=== PATIENT | male | born 1955 | race Hispanic/Latino ===

== ENCOUNTER 2024-08-25 06:22 | Day surgery (SDC) | payer OTHER ==
[2024-08-23 13:58] LABS: BASOPHILS # (AUTO) 0.03 K/uL (0.00-0.20); BASOPHILS % (AUTO) 0.3 % (0.0-5.0); EOSINOPHILS % (AUTO) 1.2 % (0.0-8.0); HEMATOCRIT 39.5 % (42-54); IMMATURE GRANULOCYTE ABSOLUTE 0.05 K/uL (0-1); LYMPHOCYTES # (AUTO) 1.7 K/uL (1.0-4.8); LYMPHOCYTES % (AUTO) 19.8 % (21.0-51.0); MEAN CORPUSCULAR HEMOGLOBIN 29.2 pg (27.0-33.0); MEAN CORPUSCULAR HGB CONC 32.9 g/dL (32.0-36.0); MEAN CORPUSCULAR VOLUME 88.8 fL (79-99); MONOCYTES # (AUTO) 0.7 K/uL (0.1-1.0); MONOCYTES % (AUTO) 7.5 % (3.0-13.0); NEUTROPHILS # (AUTO) 6.1 K/uL (1.8-7.7); NEUTROPHILS % (AUTO) 70.6 % (40.0-77.0); PLATELET COUNT (AUTO) 220 K/uL (130-400); RED BLOOD CELL COUNT(AUTO) 4.45 MIL/uL (4.50-6.20); RED CELL DISTRIBUTION WIDTH 13.5 % (11.0-15.5); WHITE BLOOD COUNT (AUTO) 8.7 K/uL (4.8-10.8)
[2024-08-23 13:59] VITALS: BP 154/65; PULSE 75; RESP 15; TEMP 98.1
[2024-08-23 14:11] LABS: CREATININE 1.5 mg/dL (0.5-1.3); POTASSIUM 4.7 mmol/L (3.5-5.1)
[2024-08-25] VITALS (11 sets, daily range): BP systolic 97–136; BP diastolic 44–75; PULSE 63–82; RESP 16–18; TEMP 97.1–97.6
[~2024-08-25] VITALS: Ht 168.9 cm; Wt 103.2 kg
[~2024-08-25 06:22] MED LIST: FINA5TAB41 PO; LISI20TA24 PO; SITA100T12 PO; TAMS-1 PO; glyburide PO; lipitor PO; omega 3 PO; omeprazole PO; vitamin d3 PO; vitamin e PO
[2024-08-25] MEDS ORDERED: cefTRIAXone 1G VIAL ONE (08:04)
[2024-08-25] MEDS ORDERED: GENTAmicin 80 MG/NS 100 ML PB 100 ML IV ONE (08:04)
[2024-08-25] MEDS ORDERED: MIDAZOLAM HCL 1 MG/ML 2ML VIAL ONE (08:45)
[2024-08-25] MEDS ORDERED: FENTanyl CITRate PF 50 MCG/1 ML 2ML VIAL ONE ×2 (08:46→09:11)
[2024-08-25] MEDS ORDERED: proPOFol 10 MG/ML 20ML VIAL IV ONE ×2 (08:46→09:10)
[2024-08-25] MEDS ORDERED: LIDOCAINE HCL 2% PF 20 ML JEL DISP.SYRIN MM ONE (08:51)
[2024-08-25] MEDS ORDERED: ondanSETRON 4MG INJ ONE (08:54)
[2024-08-25] MEDS ORDERED: SUCCINYLCHOLINE CHLORIDE 20 MG/ML 10 ML VIAL ONE (08:58)
[2024-08-25] MEDS: cefTRIAXone 1G VIAL IVPB ONE (08:58)
[2024-08-25] MEDS ORDERED: phenylEPHRINE HCL 10 MG/ML 1ML VIAL IV ONE (09:13)
== END 2024-08-25 10:30 | disposition home or self-care (01) ==
LOC: DAH 06:22
PROVIDERS: ATTEND Urology
DX: R97.20 Elevated prostate specific antigen [PSA] (principal); N40.1 Benign prostatic hyperplasia with lower urinary tract symptoms; N41.0 Acute prostatitis; C61 Malignant neoplasm of prostate; N41.1 Chronic prostatitis; I10 Essential (primary) hypertension; E11.9 Type 2 diabetes mellitus without complications; G47.30 Sleep apnea, unspecified; K21.9 Gastro-esophageal reflux disease without esophagitis; Z98.42 Cataract extraction status, left eye; Z98.41 Cataract extraction status, right eye; Z79.01 Long term (current) use of anticoagulants; Z79.899 Other long term (current) drug therapy
CPT/HCPCS: 80048; 85025; 36415; 93005; 55700; 82948 ×2; 88305; 76872; A6260; A4663; J3010; J0330; J0696 ×2; J2250; J2704 ×2; J2405; J2371; J1580; A4215 ×2; A4649; A4213; A4222; A4221; A4510; A4223 ×2; A4600; J3490